=== PATIENT | male | born 1995 | race African-American/Black ===

== ENCOUNTER 2018-05-28 08:37 | Emergency (ER) | payer OTHER ==
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
[2018-05-28] MEDS ORDERED: DIPHTH/TETANUS/ACEL. PERTUSSIS IM ONE (09:10)
[2018-05-28 09:31] LABS: PLATELET COUNT, AUTOMATED 203 K/uL (150-450)
[2018-05-28 09:40] LABS: INR 1.1
[2018-05-28] MEDS ORDERED: DIPHTH/TETANUS/ACEL. PERTUSSIS IM ONLY ONE (09:40)
[2018-05-28] MEDS ORDERED: IOPAMIDOL 76% 100 ML INFUS BTL 100 ML ONE (09:55)
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
[2018-05-28 10:30] VITALS: BP 124/88
[2018-05-28] MEDS ORDERED: METH-543 PO (10:45)
[2018-05-28] MEDS ORDERED: ACETAMINOPHEN 325 MG TAB PO ONE (10:50)
[2018-05-28] MEDS ORDERED: METHOCARBAMOL 500 MG TAB PO ONE (10:50)
== END 2018-05-28 11:04 | disposition home or self-care (01) ==
LOC: ER 09:34
DX: M54.5 Low back pain (principal); V89.2XXA Person injured in unspecified motor-vehicle accident, traffic, initial encounter
CPT/HCPCS: 71046; 74177; 80320; 81001; 83605; 83690; 85025; 85610; 85730; 90471; 90715; 99284; L0172; Q9967; 82040; 82247; 82310; 82374; 82435; 82565; 82947; 84075; 84132; 84155; 84295; 84450; 84460; 84520

== ENCOUNTER → 2018-05-28 | Outpatient (CLI) | payer OTHER ==
[~2018-05-28] MED LIST: METH-543 PO
== END ==
LOC: AMB 08:01
PROVIDERS: ATTEND Nurse Practitioner
DX: Z76.89 Persons encountering health services in other specified circumstances (principal); V49.9XXA Car occupant (driver) (passenger) injured in unspecified traffic accident, initial encounter
CPT/HCPCS: A0425; A0429